=== PATIENT | female | born 1960 | race Caucasian/White ===

== ENCOUNTER 2019-10-08 08:19 | Emergency (ER) | payer SELFPAY ==
[2019-10-08 08:29] VITALS: BMI 48.4
[2019-10-08 08:32] VITALS: BP 169/145; PULSE 129; RESP 18; TEMP 37.1; O2SAT 99
[2019-10-08 08:45] VITALS: O2SAT 98
--- NOTE | 2019-10-08 08:55 | W.ED.SKABFB ---
HPI - Skin/Abscess/Foreign Bdy General: Chief complaint: Skin/Abscess/Foreign Body Stated complaint: blisters on back and chest Time Seen by Provider: 10/08/19 08:42 History of Present Illness: HPI narrative: Patient is a 59-year-old female who comes to the ED with a painful rash on back and chest. Rash started about 2 to 3 days ago. It first started on her right side of back and has progressed and now wraps around to right side of chest. Rash is painful to touch and blisterlike. Patient states she is never had any shingles vaccinations in the past and has never had shingles in the past either. Denies any fever or chills. She rates the pain about a 2 out of 10. Associated symptoms: Deny chills, fever(s), nausea or vomiting Review of Systems Const: Denies: fever(s), chills or fatigue Eyes: Denies: change in vision or eye discomfort ENMT: Denies: throat pain, odynophagia, nasal discharge or nasal congestion Card: Denies: chest pain, palpitations, edema, swelling of feet/ankles, dyspnea on exertion or orthopnea Resp: Denies: dyspnea, productive cough or non-productive cough GI: Denies: abdominal pain, nausea, vomiting, diarrhea, constipation or hematochezia : Denies: flank pain, dysuria or hematuria Musc: Denies: neck pain, back pain or extremity swelling Skin/Breast: Reports: rash (Blisterlike rash that started did on the right side of back and has moved around to the right side of the chest.); Denies: new lesions Neuro: Denies: headache(s), numbness in extremities or weakness in extremities PFSH ED PFSH: Social History Smoking and tobacco status: never smoked Physical Exam Const: COMMON NORMALS: no acute distress, patient oriented x3 and alert GENERAL APPEARANCE: cooperative and comfortable HENMT: COMMON NORMALS: normocephalic HEAD & SCALP: normocephalic MOUTH: Normal oral and palatal mucosa present THROAT: posterior oropharynx normal and uvula midline Eye: COMMON NORMALS: Equal, round and reactive pupils present PUPIL: Yes Equal, round and reactive pupils present Neck/C-Spine: COMMON NORMALS: supple GENERAL: Yes normal visual inspection Resp: COMMON NORMALS: normal respiratory effort, No retractions, No use of accessory muscles and clear to auscultation bilaterally AUSCULTATION: clear to auscultation bilaterally Cardio: COMMON NORMALS: regular rate, regular rhythm, S1 normal heart sound present, S2 normal heart sound present, No gallops present (Cardio), No clicks present (Cardio), No murmurs present (Cardio) and Peripheral pulses 2+ throughout RATE: regular rate RHYTHM: regular rhythm HEART SOUNDS: S1 normal heart sound present and S2 normal heart sound present PERIPHERAL PULSES: Peripheral pulses 2+ throughout GI: COMMON NORMALS: Normal to inspection, nondistended, normoactive bowel sounds present, Soft to palpation, non-tender and no masses PALPATION: Yes Soft to palpation : COMMON NORMALS: Yes no CVA tenderness BLADDER/KIDNEY EXAM: Yes no CVA tenderness Back/Pelvis: COMMON NORMALS: no CVA tenderness Extremity: COMMON NORMALS: normal to inspection Neuro: COMMON NORMALS: patient oriented x3 and moves all extremities SENSORIUM/ORIENTATION: Yes alert Skin: RASHES: rashes noted Right side of back and right side of chest Rash type: Yes maculopapular and Yes vesicle Rash location: Right side of back and wraps around to right breast-does not cross midline. Rash distribution: Yes dermatomal Rash shape: Yes herpetiform Rash surface: Yes wet, Yes raised and Yes draining Rash border: Yes raised and Yes irregular Rash tenderness: Yes moderate Rash findings consistent with: Yes herpes zoster Course Vital Signs: Vital signs: Vital Signs Temperature 98.7 F 10/08/19 08:32 Pulse Rate 129 H 10/08/19 08:32 Respiratory Rate 18 10/08/19 08:32 Blood Pressure 169/145 10/08/19 08:32 Pulse Oximetry 98 10/08/19 08:45 MDM - Skin/Abscess/Foreign Bdy MDM Narrative: Medical decision making narrative: Patient is a 59-year-old female comes to the ED with a painful vesicular rash. Physical exam shows painful, blister, dermatomal rash that does not cross midline. Patient diagnosed with herpes zoster. Patient was given a prescription of valacyclovir and carbamazepine. I also placed a referral to case management for patient to get a PCP. Patient understood and agrees with plan Discharge Plan Discharge Patient Disposition: Home, Self-Care Clinical Impression: Shingles rash Qualifiers: Herpes zoster complications: without complications Qualified Code(s): B02.9 - Zoster without complications Condition: Stable Prescriptions: New valacyclovir 500 mg tablet 1,000 mg PO TID 7 Days Qty: 42 RF: 0 carbamazepine 200 mg tablet 100 mg PO DAILY Qty: 30 RF: 0 Discharge Orders: Discharge Order (Routine); Ordered 10/08/19 Ordered By: Clinton Hinds Referrals: Will Cota DO [Primary Care Provider] - Discharge Diet: Regular Discharge Activity: Increase activity as tolerated Patient Instructions: Herpes Zoster (ED) Activity Restrictions/Additional Instructions: Case management or primary care provider office should be contacting you in the next several days to set up an appointment. Take full course of valacyclovir as prescribed. Take carbamazepine as prescribed and stop taking the carbamazepine once shingles reside. He can take any [id number] pain medication such as Tylenol or ibuprofen to help with pain. Coding Level of Care Code ED Generator Mechanic for [facility] Exam Comprehensive
[2019-10-08 09:30] VITALS: BP 133/103; PULSE 110; RESP 18; TEMP 37; O2SAT 97
--- NOTE | 2019-10-13 14:56 | DCPLANNER ---
visual manager had message to speak with patient about getting established with a primary care physician. visual manager spoke with patient, she stated that she does not want help in getting a primary care physician at this time.
== END 2019-10-08 09:33 | disposition home or self-care (01) ==
PROVIDERS: Emergency Provider Physician Assistant
DX: B02.9 Zoster without complications (principal)
CPT/HCPCS: 12345; 99282

== ENCOUNTER 2019-11-20 09:47 | Emergency (ER) | payer SELFPAY ==
[2019-11-20 09:55] VITALS: BP 159/102; PULSE 109; RESP 18; O2SAT 96; BMI 38.7
--- NOTE | 2019-11-20 10:02 | W.ED.ABDPA2 ---
HPI - Abdominal Pain General: Chief Complaint: Nausea/Vomiting/Diarrhea Stated Complaint: NAUSEA/VOMITING/ABD PAIN Time Seen by Provider: 11/20/19 10:02 Source: patient and EMS History of Present Illness: HPI narrative: Patient stated that she woke at 4 AM feeling nauseous and progressively began to vomit several times between now and arrival. Initially it was dry heaving and progressed undigested food. Patient is complaining of diffuse lower abdominal pain with high-pitched bowel sounds audible at bedside. Patient is hypertensive this morning states that she normally takes lisinopril with HCTZ but due to vomiting was unable to take her blood pressure medication today. Patient was giving Zofran in route and states that she is feeling less nauseous since the medication. Last bowel movement was Thursday patient states this was a normal bowel movement and she does not struggle with constipation. No exposure to food contaminants or sick contact, travel. MD elicited complaint: abdominal pain (Diffuse lower ABD.) Pertinent past history: none Onset (ago): hour(s) Pain Consistency: constant Location: Diffuse, RLQ and LLQ Severity: moderate Quality: cramping Radiation: none Exacerbating factors: nothing Relieving factors: nothing Associated Symptoms: Reports chills, GI cramping, nausea and vomiting Review of Systems General: Reports: 10 or more systems reviewed and unremarkable except in HPI and below Const: Reports: chills GI: Reports: nausea, vomiting and GI cramping PFSH ED PFSH: Medical History (Updated 11/20/19 @ 11:19 by Shavon Stinson APRN) Shingles rash Family History (Updated 11/20/19 @ 10:18 by Shavon Stinson APRN) Mother Cancer Pancreatic Father Cancer Non-Hodkins Lymphoma, Lung CA Sister Cancer Breast Cancer Social History Smoking and tobacco status: never smoked Physical Exam Const: COMMON NORMALS: patient oriented x3, alert and well nourished GENERAL APPEARANCE: cooperative NUTRITIONAL APPEARANCE: obese HENMT: COMMON NORMALS: normocephalic and atraumatic HEAD & SCALP: normocephalic and atraumatic Eye: COMMON NORMALS: Equal, round and reactive pupils present PUPIL: Yes Equal, round and reactive pupils present Neck/C-Spine: COMMON NORMALS: full ROM and no lymphadenopathy Lymph: LYMPHATIC: no lymphadenopathy noted Chest: COMMONS NORMALS: normal inspection of the chest and normal palpation of entire chest wall Resp: COMMON NORMALS: normal respiratory effort, No retractions, No use of accessory muscles and clear to auscultation bilaterally AUSCULTATION: clear to auscultation bilaterally Cardio: COMMON NORMALS: regular rhythm, S1 normal heart sound present and S2 normal heart sound present RHYTHM: regular rhythm HEART SOUNDS: S1 normal heart sound present and S2 normal heart sound present GI: COMMON NORMALS: Normal to inspection, nondistended, normoactive bowel sounds present, Soft to palpation, No hepatosplenomegaly present, no masses and no bruits INSPECTION: Yes central obesity AUSCULTATION: Yes Hyperactive bowel sounds present and Yes High-pitched bowel sounds present PALPATION: Yes Soft to palpation and Yes No hepatosplenomegaly present : COMMON NORMALS: Yes no CVA tenderness BLADDER/KIDNEY EXAM: Yes no CVA tenderness Back/Pelvis: COMMON NORMALS: no CVA tenderness Extremity: COMMON NORMALS: normal to inspection, full ROM, capillary refill normal and no joint enlargement Neuro: COMMON NORMALS: patient oriented x3 SENSORIUM/ORIENTATION: Yes alert CRANIAL NERVES: Yes CN normal except as noted Psych: COMMON NORMALS: mental status grossly normal, cooperative and activity/motor behavior normal Skin: COMMON NORMALS: no rashes or lesions noted GENERAL SKIN EXAM: no rashes or lesions noted Course ED course: Patient has a ventral wall hernia, Dr. Ritter at bedside for evaluation hernia is reducible. Dr. Ritter agrees to follow-up with patient after discharge. Patient also has UTI, discussed with patient. Vital Signs: Vital signs: Vital Signs Pulse Rate 109 H 11/20/19 09:55 Respiratory Rate 18 11/20/19 10:33 Blood Pressure 159/102 11/20/19 09:55 Pulse Oximetry 97 11/20/19 10:33 MDM - Abdominal Pain Medical Records: Attestation: I reviewed the patient's medical records. Lab Data: Labs: Lab Results 11/20/19 11/20/19 11/20/19 Range/Units 10:15 10:19 10:19 WBC 10.6 H (4.0-10.0) 10^3/ uL RBC 5.11 (4.1-5.3) 10^6/u L Hgb 15.2 (11.5-15.3) g/dL Hct 45.7 (37.0-47.0) % MCV 89.4 (81-99) fL MCH 29.7 (28.0-34.0) pg MCHC 33.3 (30.0-36.0) g/dL RDW 14.2 (12.1-15.1) % Plt Count 389 (130-400) 10^3/c mm MPV 8.2 (7.4-10.4) fL Neut % (Auto) 88.2 % Lymph % (Auto) 6.0 % [place] % (Auto) 4.7 % Eos % (Auto) 0.2 % Baso % (Auto) 0.5 % Neut # (Auto) 9.35 H (1.8-7.7) 10^3/u L Lymph # (Auto) 0.6 L (0.8-4.8) 10^3/u L [place] # (Auto) 0.5 (0.2-0.9) 10^3/u L Eos # (Auto) 0.0 (0.0-0.8) 10^3/u L Baso # (Auto) 0.1 (0.0-0.1) 10^3/u L Nucleated RBC % (a uto) 0 % Nucleated RBCs # 0.0 /100WBC Sodium 136 (136-145) mmol/L Potassium 4.4 (3.5-5.1) mmol/L Chloride 100 (98-107) mmol/L Carbon Dioxide 21 L (22-29) mmol/L Anion Gap 19.4 H (5-19) BUN 11 (8-23) mg/dL Creatinine 0.9 (0.5-0.9) mg/dL GFR Calculation 63.7 L (90-130) mL/min Glucose 141 H (65-115) mg/dL POC Glucose 153 (70-110) mg/dL Estimat Average Gl ucose Hemoglobin A1c (4.0-6.0) % Calculated Osmolal ity 280 L (285-295) mOsm/k g Calcium 10.4 (8.5-10.5) mg/dL Total Bilirubin 0.6 (0.15-1.2) mg/dL AST 17 (0-32) U/L ALT 13 (0-33) U/L Alkaline Phosphata se 117 H (35-105) IU/L Total Protein 8.1 (6.6-8.7) g/dL Albumin 4.7 (3.5-5.2) g/dL Globulin 3.4 (1.3-4.6) g/dL Lipase 28 (13-60) U/L Urine Color (Yellow) Urine Appearance (CLEAR) Urine pH (5-7) Ur Specific Gravit y (1.005-1.030) Urine Protein (Negative) Urine Glucose (UA) (Normal) Urine Ketones (Negative) Urine Blood (Negative) Urine Nitrate (Negative) Urine Bilirubin (NEGATIVE) Urine Urobilinogen (Negative) mg/dL Ur Leukocyte Zulay ase (Negative) Urine RBC (0-2) /hpf Urine WBC (0-5) /hpf Ur Squamous Epith Cells (0-5) Amorphous Sediment Urine Bacteria (NONE) Urine Mucus 11/20/19 11/20/19 Range/Units 10:19 10:59 WBC (4.0-10.0) 10^3/ uL RBC (4.1-5.3) 10^6/u L Hgb (11.5-15.3) g/dL Hct (37.0-47.0) % MCV (81-99) fL MCH (28.0-34.0) pg MCHC (30.0-36.0) g/dL RDW (12.1-15.1) % Plt Count (130-400) 10^3/c mm MPV (7.4-10.4) fL Neut % (Auto) % Lymph % (Auto) % [place] % (Auto) % Eos % (Auto) % Baso % (Auto) % Neut # (Auto) (1.8-7.7) 10^3/u L Lymph # (Auto) (0.8-4.8) 10^3/u L [place] # (Auto) (0.2-0.9) 10^3/u L Eos # (Auto) (0.0-0.8) 10^3/u L Baso # (Auto) (0.0-0.1) 10^3/u L Nucleated RBC % (a uto) % Nucleated RBCs # /100WBC Sodium (136-145) mmol/L Potassium (3.5-5.1) mmol/L Chloride (98-107) mmol/L Carbon Dioxide (22-29) mmol/L Anion Gap (5-19) BUN (8-23) mg/dL Creatinine (0.5-0.9) mg/dL GFR Calculation (90-130) mL/min Glucose (65-115) mg/dL POC Glucose (70-110) mg/dL Estimat Average Gl ucose 97 Hemoglobin A1c 5.0 (4.0-6.0) % Calculated Osmolal ity (285-295) mOsm/k g Calcium (8.5-10.5) mg/dL Total Bilirubin (0.15-1.2) mg/dL AST (0-32) U/L ALT (0-33) U/L Alkaline Phosphata se (35-105) IU/L Total Protein (6.6-8.7) g/dL Albumin (3.5-5.2) g/dL Globulin (1.3-4.6) g/dL Lipase (13-60) U/L Urine Color Lin (Yellow) Urine Appearance Hazy A (CLEAR) Urine pH 5 (5-7) Ur Specific Gravit y 1.025 (1.005-1.030) Urine Protein Trace (Negative) Urine Glucose (UA) Norm (Normal) Urine Ketones Negative (Negative) Urine Blood Neg (Negative) Urine Nitrate Negative (Negative) Urine Bilirubin 1+ H (NEGATIVE) Urine Urobilinogen 4 H (Negative) mg/dL Ur Leukocyte Zulay ase 1+ H (Negative) Urine RBC None (0-2) /hpf Urine WBC 15-25 H (0-5) /hpf Ur Squamous Epith Cells 5-10 H (0-5) Amorphous Sediment Not Reportable Urine Bacteria 2+ H (NONE) Urine Mucus 2+ Discharge Plan Discharge Clinical Impression: Acute UTI Condition: Stable Prescriptions: No Action Tylenol 325 mg Tablet 325 mg PO QID PRN (Reason: Pain) RF: 0 lisinopril-hydrochlorothiazide 20-25 mg tablet 1 tab PO DAILY RF: 0 lorazepam 1 mg Tablet 1 mg PO DAILY PRN (Reason: Anxiety) RF: 0 Referrals: Will Cota DO [Primary Care Provider] - Coding Level of Care Code ED Biofuels Plant Superintendent for [facility] Fwd Exam Comprehensive
--- NOTE | 2019-11-20 10:07 | CTR_ITS ---
PROCEDURE INFORMATION: Exam: CT Abdomen And Pelvis With Contrast Exam date and time: 11/20/2019 10:50 AM Age: 59 years old Clinical indication: Abdominal pain; Localized; Prior surgery; Surgery date: 6+ months; Surgery type: C-sect; Patient HX: C/O lower abd pain w n/v; Additional info: Rlq pain, vomiting TECHNIQUE: Imaging protocol: Computed tomography of the abdomen and pelvis with intravenous contrast. Radiation optimization: All CT scans at this facility use at least one of these dose optimization techniques: automated exposure control; mA and/or kV adjustment per patient size (includes targeted exams where dose is matched to clinical indication); or iterative reconstruction. Contrast material: OMNI 300; Contrast volume: 95 ml; Contrast route: INTRAVENOUS (IV); COMPARISON: No relevant prior studies available. RADIATION DOSE METRICS: Total DLP (mGy-cm): 2108.26 FINDINGS: Lungs: Calcified right lower lobe granuloma. Mediastinal space: Small hiatal hernia. Liver: Fatty liver. Gallbladder and bile ducts: No calcified stones. No ductal dilation. Pancreas: No ductal dilation. Spleen: No splenomegaly. Adrenals: No mass. Kidneys and ureters: 12 mm incompletely characterized lesion in the lower pole of the left kidney (axial image 45 series 2). No hydronephrosis. Stomach and bowel: Dilation of multiple small bowel loops and the proximal/transverse colon up to a suspect point of transition in a ventral wall hernia containing a short segment of distal transverse colon. The colon distal to this area of transition is collapsed. Findings are consistent with bowel obstruction. Appendix: No evidence of appendicitis. Intraperitoneal space: No free air. No significant fluid collection. Vasculature: No abdominal aortic aneurysm. Lymph nodes: No enlarged lymph nodes. Bladder: Unremarkable as visualized. Reproductive: Unremarkable as visualized. Bones/joints: Multilevel degenerative changes. Soft tissues: Unremarkable. CT/CT abdomen pelvis w con* [id number] IMPRESSION: 1. Dilation of multiple small bowel loops and the proximal/transverse colon up to a suspect point of transition in a ventral wall hernia containing a short segment of distal transverse colon. The colon distal to this area of transition is collapsed. Findings are consistent with bowel obstruction. No free air. 2. 12 mm incompletely characterized lesion in the lower pole of the left kidney. Recommend MR without and with contrast or CT without and with contrast within 6-12 months. MR is preferred for masses under 1.5 cm. Radiation Dose CTDIVOL = (mGy): DLP = 2108.26 (mGy-cm)
[2019-11-20 10:08] VITALS: BP 153/102; PULSE 109; RESP 18; O2SAT 96
--- NOTE | 2019-11-20 10:08 | ECG_ITS ---
[facility] Test Date: 2019-11-20 Pat Name: Lissy Ma Department: Room: Gender: Female Neurology Teacher: : 1960 Requested By: Shavon Stinson Order Number: [id number] Fabián MD: Sixto Mercer M.D. Measurements Intervals [place] Rate: 107 P: 11 IN: 150 QRS: 7 QRSD: 80 T: 56 QT: 306 QTc: 410 Interpretive Statements SINUS TACHYCARDIA NONSPECIFIC T-WAVE ABNORMALITY ABNORMAL RHYTHM ECG No previous ECG available for comparison Electronically Signed On 11-20-2019 19:05:22 CDT by Sixto Mercer M.D. [id number] f
[2019-11-20 10:17] LABS: Glucose Point of Care 153 mg/dL (70-110)
[2019-11-20] MEDS: sodium chloride 0.9% 1,000 ML 999 ML IV ×2 (10:20→12:09)
[2019-11-20] MEDS: ondansetron 2 mg/ML SDV 2 mL 4 MG IVP (10:20)
[2019-11-20 10:31] LABS: Basophils # 0.1 10^3/uL (0.0-0.1); Basophils % 0.5 %; Eosinophils % 0.2 %; Hematocrit 45.7 % (37.0-47.0); Hemoglobin 15.2 g/dL (11.5-15.3); Lymphocytes # 0.6 10^3/uL (0.8-4.8); Mean Corpuscular HGB Conc 33.3 g/dL (30.0-36.0); Mean Corpuscular Hemoglobin 29.7 pg (28.0-34.0); Mean Corpuscular Volume 89.4 fL (81-99); Mean Platelet Volume 8.2 fL (7.4-10.4); Monocytes # 0.5 10^3/uL (0.2-0.9); Monocytes % 4.7 %; Neutrophils # 9.35 10^3/uL (1.8-7.7); Neutrophils % 88.2 %; Nucleated Red Blood Cells % 0 %; Platelet Count 389 10^3/cmm (130-400); Red Blood Count 5.11 10^6/uL (4.1-5.3); Red Cell Distribution Width 14.2 % (12.1-15.1); White Blood Count 10.6 10^3/uL (4.0-10.0)
[2019-11-20 10:33] VITALS: RESP 18; O2SAT 97
[2019-11-20] MEDS: morphine 4 mg/mL SDV 1 mL 2 MG IVP (10:33)
[2019-11-20 10:53] LABS: Alanine Aminotransferase 13 U/L (0-33); Albumin Level 4.7 g/dL (3.5-5.2); Alkaline Phosphatase 117 IU/L (35-105); Anion Gap 19.4 (5-19); Aspartate Amino Transferase 17 U/L (0-32); Blood Urea Nitrogen 11 mg/dL (8-23); Calcium 10.4 mg/dL (8.5-10.5); Carbon Dioxide 21 mmol/L (22-29); Chloride 100 mmol/L (98-107); Globulin 3.4 g/dL (1.3-4.6); Glomerular Filtration Rate 63.7 mL/min (90-130); Glucose 141 mg/dL (65-115); Lipase 28 U/L (13-60); Osmolality Calculated 280 mOsm/kg (285-295); Potassium 4.4 mmol/L (3.5-5.1); Sodium 136 mmol/L (136-145); Total Bilirubin 0.6 mg/dL (0.15-1.2); Total Protein 8.1 g/dL (6.6-8.7)
[2019-11-20 10:58] LABS: Estmated Average Glucose 97
[2019-11-20 11:05] VITALS: BP 182/118; PULSE 109; RESP 18; O2SAT 94
[2019-11-20 11:05] LABS: Add Urine Microscopic? YES; Bilirubin Urine 1+ (NEGATIVE); Blood Urine Neg (Negative); Glucose Urine UA Norm (Normal); Ketones Urine Negative (Negative); Leukocyte Esterase Urine 1+ (Negative); Nitrate Urine Negative (Negative); Protein Urine Trace (Negative); Specific Gravity, Urine 1.025 (1.005-1.030); Urine Appearance Hazy (CLEAR); Urine Color Amber (Yellow); Urobilinogen Urine 4 mg/dL (Negative); pH Urine 5 (5-7)
[2019-11-20] MEDS: iohexol 300 mg/mL 100 mL Btl IV (11:07)
[2019-11-20 11:12] LABS: WBC Urine 15-25 /hpf (0-5)
[2019-11-20 11:13] LABS: Bacteria Urine 2+; Mucus Urine 2+
[2019-11-20 11:14] LABS: Add Urine Culture? Yes
[2019-11-20 11:45] VITALS: BP 170/100; PULSE 110; RESP 18; O2SAT 97
--- NOTE | 2019-11-20 12:02 | P.CONIM_ITS ---
Providers/Reason For Consult Consulting Physican/Specialty*: Marcell Ritter MD Reason for Consult*: Nausea and vomiting Requesting Physcian: Shavon Stinson NP Primary Care Provider: Will Cota DO History of Present Illness History of Present Illness Chief Complaint: I been throwing up History of present illness: Lissy Ma is a 59 year old female presents to the emergency department with worsening nausea and vomiting patient recalls that she had a bowel movement last Sumeet, she did not feel well and then she decided to come to the ER seeking medical advice. Upon further clinical evaluation caring provider, it was found to have a ventral hernia and general surgery was consulted for further evaluation at the same time a CT scan was already ordered the abdomen and pelvis that showed: Lungs: Calcified right lower lobe granuloma. Mediastinal space: Small hiatal hernia. Liver: Fatty liver. Gallbladder and bile ducts: No calcified stones. No ductal dilation. Pancreas: No ductal dilation. Spleen: No splenomegaly. Adrenals: No mass. Kidneys and ureters: 12 mm incompletely characterized lesion in the lower pole of the left kidney (axial image 45 series 2). No hydronephrosis. Stomach and bowel: Dilation of multiple small bowel loops and the proximal/transverse colon up to a suspect point of transition in a ventral wall hernia containing a short segment of distal transverse colon. The colon distal to this area of transition is collapsed. Findings are consistent with bowel obstruction. Appendix: No evidence of appendicitis. Intraperitoneal space: No free air. No significant fluid collection. Vasculature: No abdominal aortic aneurysm. Lymph nodes: No enlarged lymph nodes. Bladder: Unremarkable as visualized. Reproductive: Unremarkable as visualized. Bones/joints: Multilevel degenerative changes. Soft tissues: Unremarkable. CT/CT abdomen pelvis w con* [id number] IMPRESSION: 1. Dilation of multiple small bowel loops and the proximal/transverse colon up to a suspect point of transition in a ventral wall hernia containing a short segment of distal transverse colon. The colon distal to this area of transition is collapsed. Findings are consistent with bowel obstruction. No free air. 2. 12 mm incompletely characterized lesion in the lower pole of the left kidney. Recommend MR without and with contrast or CT without and with contrast within 6-12 months. MR is preferred for masses under 1.5 cm. Patient was seen and evaluated in the emergency department room 7, upon further inquiry patient denies any abdominal pain and she reports that she has been dehydrated when I asked further, urinalysis showed that the patient has UTI. She denies any signs or symptoms of bowel obstruction and she has been aware of her hernia and whenever she feels it is popping out she lies on her belly and that should reduce it back in, she denies any pain at the hernia site. Review of Systems General: Reports: 10 or more systems reviewed and unremarkable except in HPI and below Meds/Allergies Home Medications and Allergies Home Medications Medication Instructions Recorded Confirmed Last Taken Type acetaminophen [Tylenol] 325 mg PO QID PRN 11/20/19 11/20/19 Unknown History lisinopril-hydrochlorothiazide 1 tab PO DAILY 11/20/19 11/20/19 11/19/19 History lorazepam 1 mg PO DAILY PRN 11/20/19 11/20/19 11/19/19 History Allergies Allergy/AdvReac Type Severity Reaction Status Date / Time aspirin Allergy ADR-Nausea Verified 11/20/19 12:06 codeine Allergy ADR-Nausea Verified 11/20/19 12:06 Penicillins Allergy ALGY-Rash Verified 11/20/19 12:06 Current Medications Current Medications Generic Name Dose Route Start Last Admin Trade Name Freq PRN Reason Stop Dose Admin Ondansetron HCl 4 mg 11/20/19 10:07 11/20/19 10:20 Zofran IVP 4 mg Q6H PRN Administration VOMITING PFSH Acute PFSH: Medical History Shingles rash Family History Mother Cancer Pancreatic Father Cancer Non-Hodkins Lymphoma, Lung CA Sister Cancer Breast Cancer Social History Smoking and tobacco status: never smoked Vitals/I&O/Wt Last Vital Signs Pulse 109 H 11/20/19 09:55 Resp 18 11/20/19 10:33 BP 159/102 11/20/19 09:55 Pulse Ox 97 11/20/19 10:33 Weight last 48 hrs Weight 240 lb Physical Exam Narrative: EXAM NARRATIVE: Patient is conscious alert oriented X3 BMI 39 Head and neck examination PERRLA no masses no cervical lymphadenopathy no jaundice Cardiac examination audible S1-S2 no murmurs no gallops no arrhythmias Chest is clear bilateral,abscence of Rhonchi or wheezes,no surgical emphysema Abdomen nontender nondistended soft no organomegaly guarding or rigidity/no signs of peritonitis, easily reducible ventral hernia. Extremities no cyanosis no clubbing no edema A&P Assessment and plan (1) Hernia, ventral: After thorough history physical examination and reviewing the chart and images with my personal interpretation, I do not believe that the patient's symptoms related to her easily reducible ventral hernia, patient does not have clinically bowel obstruction. I do recommend that the patient to be resuscitated with IV fluids and have a follow-up with me as an outpatient And to watch for signs of incarceration if there is any worsening symptoms return to the ER. Patient was well educated about her hernia and potential plan for elective surgical intervention after further discussion for her obesity management to maximize her success for elective hernia repair and minimize potential recurrence. Also I did adult school counselor the patient for colonoscopy as she never had one before I Will defer the treatment of your the urinary tract infection to Ms. Stinson Thank you for consulting general surgery to participate taking care Ms. Ma Status: Acute Qualifiers: Obstruction and gangrene presence: without obstruction or gangrene Qualified Code(s): K43.9 - Ventral hernia without obstruction or gangrene Consult Attestations Medical Necessity Statement: Per ER Time Spent in Patient Care: 16 - 35 minutes (>than 50% of time spent in counselling and/or direct pt care on unit) . Coding Level of Care Code Acute Classified Advertising Manager for [facility] Venancio Diagnoses Hernia, ventral K43.9 Obstruction and gangrene presence: without obstruction or gangrene
[2019-11-20 12:15] LABS: Lactate (Lactic Acid level) 1.9 mmol/L (0.5-2.2)
[2019-11-20 12:54] VITALS: BP 166/105; PULSE 94; RESP 17; O2SAT 99
== END 2019-11-20 12:58 | disposition home or self-care (01) ==
PROVIDERS: Emergency Provider Nurse Practitioner Family
DX: N39.0 Urinary tract infection, site not specified (principal)
CPT/HCPCS: 12345; 36415; 36416; 74177; 80053; 81001; 81003; 82962; 83036; 83605; 83690; 85025; 87077; 87086; 87186; 93005; 96360; 96361; 96374; 96375; 99283; 99284; J2270; J2405; J7030; Q9967

== ENCOUNTER 2019-11-20 18:41 | Emergency (ER) | payer SELFPAY ==
[2019-11-20 19:16] VITALS: BP 155/95; PULSE 109; RESP 20; TEMP 36.4; O2SAT 95; BMI 48.4
[2019-11-20 19:17] LABS: Basophils % 0.3 %; Eosinophils % 0.1 %; Hematocrit 43.8 % (37.0-47.0); Hemoglobin 14.9 g/dL (11.5-15.3); Lymphocytes # 0.8 10^3/uL (0.8-4.8); Lymphocytes % 7.7 %; Mean Corpuscular Hemoglobin 30.3 pg (28.0-34.0); Mean Corpuscular Volume 89.2 fL (81-99); Mean Platelet Volume 8.4 fL (7.4-10.4); Monocytes # 0.9 10^3/uL (0.2-0.9); Monocytes % 8.5 %; Neutrophils # 8.37 10^3/uL (1.8-7.7); Nucleated Red Blood Cells % 0 %; Platelet Count 430 10^3/cmm (130-400); Red Blood Count 4.91 10^6/uL (4.1-5.3); Red Cell Distribution Width 14.5 % (12.1-15.1); White Blood Count 10.1 10^3/uL (4.0-10.0)
[2019-11-20 19:31] LABS: Alanine Aminotransferase 16 U/L (0-33); Albumin Level 4.6 g/dL (3.5-5.2); Alkaline Phosphatase 105 IU/L (35-105); Anion Gap 20.2 (5-19); Aspartate Amino Transferase 15 U/L (0-32); Blood Urea Nitrogen 10 mg/dL (8-23); Calcium 9.8 mg/dL (8.5-10.5); Carbon Dioxide 21 mmol/L (22-29); Chloride 101 mmol/L (98-107); Globulin 3.4 g/dL (1.3-4.6); Glomerular Filtration Rate 63.7 mL/min (90-130); Glucose 154 mg/dL (65-115); Lipase 23 U/L (13-60); Osmolality Calculated 285 mOsm/kg (285-295); Potassium 4.2 mmol/L (3.5-5.1); Sodium 138 mmol/L (136-145); Total Bilirubin 0.7 mg/dL (0.15-1.2)
[2019-11-20 19:32] LABS: Lactate (Lactic Acid level) 2.1 mmol/L (0.5-2.2)
== END 2019-11-20 20:41 | disposition left against medical advice (07) ==
LOC: ER 20:13
PROVIDERS: Emergency Medicine; Emergency Provider Emergency Medicine
DX: Z53.21 Procedure and treatment not carried out due to patient leaving prior to being seen by health care provider (principal)
CPT/HCPCS: 80053; 83605; 83690; 85025; 99281